=== PATIENT | male | born 1985 | race African-American/Black ===

== ENCOUNTER 2016-11-30 13:41 | Emergency (ER) | payer OTHER ==
[~2016-11-30] VITALS: Ht 167.6 cm; Wt 68.5 kg
[2016-11-30] MEDS ORDERED: PHEN100C4 PO (13:53)
[2016-11-30 13:54] VITALS: BP 155/72
== END 2016-11-30 15:06 | disposition left against medical advice (07) ==
LOC: ER 14:47
DX: T43.621A Poisoning by amphetamines, accidental (unintentional), initial encounter (principal); Y92.89 Other specified places as the place of occurrence of the external cause
CPT/HCPCS: 99283

== ENCOUNTER 2016-11-30 16:26 | Emergency (ER) | payer SELFPAY ==
[~2016-11-30] VITALS: Ht 172.7 cm; Wt 73.0 kg
[~2016-11-30 16:26] MED LIST: PHEN100C4 PO
[2016-11-30] MEDS ORDERED: LORAZEPAM 1MG TABLET PO ONE ×2 (18:15→18:30)
[2016-11-30] MEDS ORDERED: IBUPROFEN 800MG TABLET PO ONE (18:15)
[2016-11-30 18:43] LABS: *AMPHETAMINES SCREEN URINE PRESUMTIVE POSITIVE (NEGATIVE); *BARBITURATES SCREEN URINE NEGATIVE (NEGATIVE); *BENZODIAZEPINES SCREEN URINE PRESUMTIVE POSITIVE (NEGATIVE); *COCAINE SCREEN URINE PRESUMTIVE POSITIVE (NEGATIVE); CANNABINOID URINE SCREEN PRESUMTIVE POSITIVE (NEGATIVE); METHADONE URINE SCREEN NEGATIVE (NEGATIVE); OPIATES URINE SCREEN NEGATIVE (NEGATIVE); PHENCYCLIDINE URINE SCREEN NEGATIVE (NEGATIVE)
[2016-11-30 18:57] VITALS: BP 140/78
== END 2016-11-30 19:09 | disposition left against medical advice (07) ==
LOC: ER 18:47
DX: F41.9 Anxiety disorder, unspecified (principal); F17.210 Nicotine dependence, cigarettes, uncomplicated; F12.10 Cannabis abuse, uncomplicated; F15.10 Other stimulant abuse, uncomplicated
CPT/HCPCS: 80305; 99284